=== PATIENT | female | born 1990 | race Two or more races ===

== ENCOUNTER 2024-12-21 17:12 | Emergency (ER) | payer MEDICAID ==
[2024-12-21 18:12] LABS: GLUCOSE,URINE NORMAL (NORMAL); OCCULT BLOOD,URINE LARGE (NEGATIVE)
[2024-12-21 18:13] LABS: APPEARANCE,URINE CLEAR (CLEAR); SQUAMOUS EPITHELIAL CELLS,UR FEW (NS,R,O)
[2024-12-21] MEDS: Acetaminophen/HYDROcodone 325-5 MG Tab PO ONE (19:49)
== END 2024-12-21 20:25 | disposition home or self-care (01) ==
LOC: FB.ED 17:12 → EDBD 17:12 → FB.ED 20:25
DX: R10.A1 Flank pain, right side (principal); R31.0 Gross hematuria; Z88.8 Allergy status to other drugs, medicaments and biological substances; Z79.899 Other long term (current) drug therapy
CPT/HCPCS: 74176; 81001; 99283; 99284; A9270